=== PATIENT | female | born 1975 | race Caucasian/White ===

== ENCOUNTER → 2024-05-15 | Outpatient (CLI) | payer BC ==
[2024-05-15 11:44] LABS: Basophils % (A) 0 %; Eosinophils # (A) 0.1 k/uL (0-0.7); Eosinophils % (A) 1 %; HCT 44.2 % (34.0-46.0); HGB 13.4 gm/dL (11.4-16.0); Hypochromasia Slight; Lymphocytes # (A) 2.3 k/uL (1.0-4.8); Lymphocytes % (A) 32 %; MCH 25.6 pg (25.0-35.0); MCHC 30.4 g/dL (31.0-37.0); MCV 84.1 fL (80.0-100.0); Monocytes # (A) 0.4 k/uL (0-1.0); Monocytes % (A) 5 %; Neutrophils # (A) 4.4 k/uL (1.3-7.7); Neutrophils % (A) 60 %; Platelet Count 409 k/uL (150-450); RBC 5.25 m/uL (3.80-5.40); WBC 7.3 k/uL (3.8-10.6)
[2024-05-15 12:25] LABS: Total Eosinophil Count 71 #EOS/uL (150-300)
[2024-05-15 15:16] LABS: Immunoglobulin M 61.5 mg/dL (40.0-280.0)
[2024-05-15 15:53] LABS: % Iron Saturation 31.46 (12.00-45.00); ALT 18 U/L (8-44); AST 21 U/L (13-35); Albumin 4.4 g/dL (3.8-4.9); Albumin/Globulin Ratio 1.57 Ratio (1.60-3.17); Alkaline Phosphatase 54 U/L (41-126); BUN/Creat Ratio 10.75 Ratio (12.00-20.00); Blood Urea Nitrogen 8.6 mg/dL (9.0-27.0); Calcium 9.8 mg/dL (8.7-10.3); Carbon Dioxide 25.1 mmol/L (21.6-31.8); Chloride 103 mmol/L (96-109); Ferritin 13.5 ng/mL (10.0-291.0); Globulin 2.8 g/dL (1.6-3.3); Glucose 89 mg/dL (70-110); Iron 134 UG/DL (50-170); Sodium 139 mmol/L (135-145); Total Bilirubin 1.2 mg/dL (0.3-1.2); Total Iron Binding Capacity 426 UG/DL (228-460); Total Protein 7.2 g/dL (6.2-8.2)
[2024-05-15 17:30] LABS: Anti-DNA, DS unit <1.0 IU/mL; Centromere Antibody <0.2 AI; Centromere Antibody Interp Negative (Negative); Chromatin Antibody <0.2 AI; DNA Double-Stranded Negative (Negative); JO-1 IgG Antibody <0.2 AI
[2024-05-15 17:57] LABS: Cyclic Citrull Pep IgG Unit <1.5 U/mL (<=3.9); Cyclic Citrullinated Pep IgG Negative
[2024-05-16 12:20] LABS: Smooth Muscle Antibody 9 UNITS (<20)
[2024-05-16 14:26] LABS: Thyroid Stim Immun Quant <0.10 IU/L (<0.10)
== END | disposition home or self-care (01) ==
LOC: LABWHC1 10:47
PROVIDERS: ATTEND Family Medicine
DX: D50.9 Iron deficiency anemia, unspecified (principal); D89.40 Mast cell activation, unspecified; J30.89 Other allergic rhinitis; J45.991 Cough variant asthma; R79.9 Abnormal finding of blood chemistry, unspecified
CPT/HCPCS: 36415; 80053; 82607; 82728; 82784; 82785; 83516; 83540; 83550; 84443; 84445; 85008; 85025; 86001; 86038; 86200; 86225; 86235; 86376; 86606; 86609